=== PATIENT | female | born 1945 | race Caucasian/White ===

== ENCOUNTER → 2017-03-05 | Outpatient (CLI) | payer BC, OTHER ==
[~2017-03-05] MED LIST: CALCIUM 600 +1 EAC1 PO; FISH OIL 1,001000 M2 PO; MULTIVITAMINS PO; NORVASC5 MG PO; TURMERIC500 M2 PO
== END ==
LOC: CAT 12:29
DX: M19.012 Primary osteoarthritis, left shoulder (principal)